=== PATIENT | male | born 1965 | race Caucasian/White ===

== ENCOUNTER 2016-09-01 15:31 | Observation (INO) ==
[2016-09-01] MEDS ORDERED: FAMOTIDINE 20 MG/2 ML VIAL IV STA ×2 (15:35→15:49)
[2016-09-01] MEDS ORDERED: diphenhydrAMINE 50 MG/1 ML VIAL ONE (15:37)
[2016-09-01] MEDS ORDERED: methylPREDNISolone SOD SUC 125 MG/2 ML VIAL ONE (15:37)
[2016-09-01] MEDS ORDERED: EPINEPHrine 1 MG/ML VIAL ONE (15:37)
[2016-09-01] MEDS ORDERED: FAMOTIDINE 20 MG/2 ML VIAL IV ONE (15:38)
[2016-09-01] MEDS ORDERED: methylPREDNISolone SOD SUC 125 MG/2 ML VIAL IV STA ×2 (15:40→15:49)
[2016-09-01] MEDS ORDERED: METOPROLOL TARTRATE 5 MG/5 ML VIAL IV ONE (15:47)
[2016-09-01] MEDS ORDERED: diphenhydrAMINE 50 MG/1 ML VIAL IV STA (15:49)
[2016-09-01] MEDS ORDERED: EPINEPHrine 1 MG/ML VIAL IM STA (15:49)
[2016-09-01] MEDS ORDERED: METOPROLOL TARTRATE 5 MG/5 ML VIAL IV STA (15:50)
[2016-09-01] MEDS ORDERED: RACEPINEPHRINE 0.5 ML NEB RESP TX STA (15:50)
[2016-09-01] MEDS ORDERED: GLYCOPYRROLATE 0.4 MG/2 ML VIAL ONE (15:51)
[2016-09-01] MEDS ORDERED: GLYCOPYRROLATE 0.4 MG/2 ML VIAL IV STA (15:53)
[2016-09-01] MEDS ORDERED: RACEPINEPHRINE 0.5 ML NEB RESP TX ONE (15:54)
[2016-09-01] MEDS ORDERED: hydrALAZINE 20 MG/1 ML VIAL ONE (15:56)
[2016-09-01] MEDS ORDERED: hydrALAZINE 20 MG/1 ML VIAL IV STA (15:58)
[2016-09-01 16:03] LABS: Basophils # 0.1 10*3/uL (0.0-0.2); Basophils % 1.2 % (0.0-0.8); Eosinophils % 0.4 % (0.00-10.9); Hemoglobin 14.4 GM/DL (14.0-18.0); Immature Granulocytes % 0.4 %; Immature Granulocytes Absolute 0.04 #; Lymphocytes # 1.9 10*3/uL (1.4-4.0); Lymphocytes % 19.7 % (21.2-54.2); Mean Corpuscular HGB Conc 35.1 GM/DL (32-36); Mean Corpuscular Hemoglobin 33 PG (27-34); Mean Corpuscular Volume 93.4 FL (87-102); Mean Platelet Volume 11.2 FL (9.6-12.0); Monocytes # 1.4 10*3/uL (0.11-0.8); Monocytes % 14.3 % (1.7-12.7); Neutrophils # 6.3 10*3/uL (1.4-7.4); Platelet Count 277 T/CUMM (130-400); Red Blood Count 4.39 MC/CUMM (3.8-5.5); Red Cell Distribution Width 12.8 % (9.3-17.3); White Blood Count 9.8 T/CUMM (4-12)
[2016-09-01] MEDS ORDERED: DEXAMETHASONE 10 MG/1 ML VIAL ONE (16:03)
[2016-09-01 16:04] LABS: Osmolality,Calculated 278.7 MOS/KG (273-304); Potassium 3.8 MMOL/L (3.5-5.1)
[2016-09-01] MEDS ORDERED: DEXAMETHASONE 4 MG/1 ML VIAL IV STA (16:05)
[2016-09-01] MEDS ORDERED: MIDAZOLAM 2 MG/2 ML VIAL ONE (16:09)
[2016-09-01] MEDS ORDERED: MIDAZOLAM 2 MG/2 ML VIAL IV STA (16:10)
--- NOTE | 2016-09-01 16:18 | XRay Report ---
Portable chest Date: 09/11/2016 Clinical history: Shortness of breath Comparison: None Technique: Portable AP sitting chest Findings: The heart is normal in size. Artifactual densities are noted with minimal atelectasis. Gaseous distention of the visualized stomach. Degenerative changes as noted. Impression: Artifact limits exam. Minimal atelectasis. Gaseous distention of the stomach. PROCEDURE INTERPRETED AT [facility] DEPARTMENT OF RADIOLOGY Final Report Signed by: Dr. Omaira Levine
--- NOTE | 2016-09-01 16:36 | Emergency Department Note ---
Iram Cosme Brittany, am scribing for, and in the presence of, Giovanny Nelson MD 15:39. Omar Cosme Phillip K, MD, personally performed the services described in this documentation, ascribed by Citlaly Walden in my presence, and it is both accurate and complete 631 . Arrival - Arrival Chief Complaint: Allergic Reaction Stated Complaint: Allergic rx Mode of Arrival: Ambulatory Limitations: No Limitations Source: Patient - History of Present Illness HPI Narrative: This is a 51 y/o male, who presents to the ED with c/o Allergic reaction which started earlier this morning. He reports for the past 3 months he has been taking Lisinopril 10 MG. He reports he is mildly SOB and also having some difficulty swallowing.. Pt has no other complaints/pain in the ED at this time. Pt has a PMHx of HTN. Patient has some altered speech secondary to swelling in the back of his throat. The symptoms began around 9 a.m. this morning. Onset (ago): hour(s) (Started this morning) Consistency: constant Severity: moderate Allergies/Adverse Reactions: Allergies Allergy/AdvReac Type Severity Reaction Status Date / Time No Known Allergies Allergy Verified 09/01/16 15:36 Home Medications: Home Medications Medication Instructions Recorded Confirmed Type Atenolol [Tenormin] 50 mg PO BID 07/09/15 09/01/16 History Omeprazole [Prilosec] 20 mg PO QAM 07/09/15 09/01/16 History [place]-3S/Dha/Epa/Fish Oil [Fish 1 each PO QAM 09/01/16 09/01/16 History Oil 1,200 mg Softgel] Simvastatin [Simvastatin] 40 mg PO BEDTIME 09/01/16 09/01/16 History cloNIDine HCl [Clonidine HCl] 0.2 mg PO BID 09/01/16 09/01/16 History Review of System - Review of System 12 point system: reviewed and no additional remarkable complaints except as stated - Review of System Cardiovascular: Present: other (Mild Dyspnea) Exam Vital Signs: Vital Signs Temperature 98.2 F 09/01/16 17:46 Pulse Rate 107 H 09/01/16 17:46 Respiratory Rate 18 09/01/16 17:46 Blood Pressure 162/100 09/01/16 17:46 O2 Sat by Pulse Oximetry 100 09/01/16 17:45 - General General appearance: alert, in no apparent distress - Head Head exam: Present: atraumatic, normocephalic, normal inspection - Eye Eye exam: Present: normal appearance, PERRL, EOMI. Absent: nystagmus - ENT ENT exam: Present: other (Swelling to the posterior pharynx and uvula) - Neck Neck exam: Present: normal inspection, full ROM, trachea midline. Absent: tenderness, meningismus, lymphadenopathy, thyromegaly - Chest Chest inspection: Present: normal inspection, symmetric chest wall rise. Absent : tenderness, rash, abscess - Respiratory Respiratory exam: Present: normal lung sounds bilaterally. Absent: rales, respiratory distress, rhonchi, stridor, wheezes - Cardiovascular Cardiovascular exam: Present: regular rate, normal rhythm, normal heart sounds. Absent: murmur, rubs, gallop, clicks - Abdominal Exam Abdominal exam: Present: soft, normal bowel sounds. Absent: distention, tenderness, guarding, rebound, rigidity - Extremities Exam Extremities exam: Present: normal inspection, full ROM, normal capillary refill. Absent: tenderness, pedal edema, joint swelling, calf tenderness - Back Exam Back exam: Present: normal inspection, full ROM. Absent: tenderness, muscle spasm, rashes - Neurological Exam Neurological exam: Present: alert, oriented X3, CN II-XII intact. Absent: motor sensory deficit - Psychiatric Psychiatric exam: Present: normal affect, normal mood. Absent: depressed, agitated, anxious, manic - Skin Skin exam: Present: warm, dry, intact, normal color. Absent: rash, cyanosis, diaphoresis, erythema, pallor, mottled Course Course Narrative: Patient given IM epinephrine, racemic epinephrine, Benadryl IV and IV steroids. Patient also has 2 units of fresh frozen plasma hanging. There may be some slight improvement in his airway at the present time. He is able to speak words that are comprehensible. We will admit him to ICU weekly monitored closely. Dr. Servin and the anesthesia department is aware of the patient's condition. Patient examined at 1708 and has clear lungs however does have continued to have swelling in the back of his throat around the posterior pharynx and the uvula. There is no swelling of the tongue noted or lips. Results - Labs CBC & BMP: 09/01/16 15:42 09/01/16 15:42 Lab Results: I have reviewed the patients labs Labs: Laboratory Tests 09/01/16 09/01/16 15:42 15:42 WBC 9.8 RBC 4.39 Hgb 14.4 Hct 41.0 L MCV 93.4 MCH 33 MCHC 35.1 RDW 12.8 Plt Count 277 MPV 11.2 Neut % (Auto) 64.0 Lymph % (Auto) 19.7 L Wright % (Auto) 14.3 H Eos % (Auto) 0.4 Baso % (Auto) 1.2 H Neut # (Auto) 6.3 Lymph # (Auto) 1.9 Wright # (Auto) 1.4 H Eos # (Auto) 0.0 Baso # (Auto) 0.1 Immature Gran % 0.4 Nucleated RBC % 0.0 Immature Gran # 0.04 Nucleated RBCs # 0.00 Sodium 138 Potassium 3.8 Chloride 97 L Carbon Dioxide 24 Anion Gap 20.8 H BUN 18 Creatinine 1.40 H GFR Calculation 66 BUN/Creatinine Ratio 12.00 Glucose 129 H Calculated Osmolality 278.7 Calcium 9.0 - Diagnostic Findings Procedure: Chest x-ray: report reviewed by me (Artifact limits exam. Miimla atelectasis. Gaseous distention of the stomach. ) Disposition Clinical Impression: Angioedema, Hypertension Case discussed with: patient, patient's family Disposition: Still a Patient Condition: Critical Additional Instructions: Anesthesia consulted. Dr. Servin consulted. Patient seen by both in the ED. We will admit to ICU so he can be closely monitored. Patient will need to be intubated at the first sign of any increased difficulty.
[2016-09-01] MEDS ORDERED: LABETALOL 20 MG/4 ML SYRINGE IV STA ×2 (16:50→16:56)
[2016-09-01] MEDS ORDERED: LABETALOL 20 MG/4 ML SYRINGE IV ONE (16:50)
--- NOTE | 2016-09-01 17:39 | Consultation ---
Assessment and Plan - Time spent with patient Time spent with patient: Greater than 30 minutes (1) Inspiratory stridor Status: Acute Assessment and plan: Bedside laryngoscopy does reveal area epiglottic fold and vocal fold edema with some tongue base edema as well fortunately the glottis and subglottis is widely patent. If his stridor worsens or the patient feels any difficulty with his breathing I would recommend moving to intubation sooner than later. Since his glottis is widely patent I think intubation with a glide scope would be able to be performed and he most likely will not need a trach. Anesthesia would like to try additional medical treatment and he is currently receiving fresh frozen plasma and they will continue to monitor him over the next 2-3 hours and I will defer to their judgment. I will remain available and please notify me if there is any change of condition or if I am needed emergently. Thank you very much for this consultation Current Visit: Yes (2) Supraglottic edema Status: Acute Current Visit: Yes (3) Angioedema Status: Acute Current Visit: Yes History of Present Illness - Data of Consult Patient: new to practice Consult date: 09/01/16 Requesting Physician: Giovanny Nelson - Consult Narrative History of present illness: Mr. Caputo is a 51 year old male with new onset shortness of breath and dysphonia presented to the emergency room and has been evaluated and treated for angioedema he has received epinephrine and steroids. ENT and anesthesia are consulted to evaluate whether the patient needs intubation or not and if so rather he needs to be done in the controlled setting such as the OR for possible tracheostomy placement. CC: - Home Medications and Allergies Home Medications: Home Medications Medication Instructions Recorded Confirmed Type Atenolol [Tenormin] 50 mg PO BID 07/09/15 09/01/16 History Omeprazole [Prilosec] 20 mg PO QAM 07/09/15 09/01/16 History [place]-3S/Dha/Epa/Fish Oil [Fish 1 each PO QAM 09/01/16 09/01/16 History Oil 1,200 mg Softgel] Simvastatin [Simvastatin] 40 mg PO BEDTIME 09/01/16 09/01/16 History cloNIDine HCl [Clonidine HCl] 0.2 mg PO BID 09/01/16 09/01/16 History Allergies/Adverse Reactions: Allergies Allergy/AdvReac Type Severity Reaction Status Date / Time No Known Allergies Allergy Verified 09/01/16 15:36 12 point system: reviewed and no additional remarkable complaints except as stated Medical,Surgical,& Family Hx - Medical History Cardio: History of: Hypertension Endocrine: History of: Dyslipidemia Gastrointestinal: History of: GERD - Surgical History Orthopedic Surgeries: Surgical HX of;: Orthopedic Surgery (LEFT ANKLE) - Social History Smoking Status: Never smoker Frequency of Alcohol Use: Unknown Type of Drug Use: None Exam - Constitutional Vitals: Period Temp Pulse Resp BP Sys/Jacobs Pulse Ox Last 24 Hr 97.6 F-98.2 F 88-132 18-18 116-184/76-124 100-100 General appearance: normal weight, mild distress - Head Head exam: Present: normal inspection, normocephalic, atraumatic - Eye Eye exam: Present: EOMI Pupils: Present: EDITH - ENT ENT exam: Present: normal exam, normal external ear exam, other (Oropharyngeal exam and bedside laryngoscopy reveals some base of tongue edema and significant and edema of the false vocal cords and aryepiglottic folds but an open glottis and subglottis. The patient is saturating 100% on room air but does have some inspiratory stridor secondary to these findings.) - Neck Neck exam: Present: normal inspection - Respiratory Respiratory exam: Present: stridor (Mild), other (No difficulty breathing or tachypnea) - Cardiovascular Cardiovascular exam: Present: regular rate and rhythm - GI/Abdominal GI/Abdominal exam: Present: soft (No gross organomegaly) - Extremities Exam Extremities exam: Present: normal inspection, normal capillary refill - Neurological Exam Neurological exam: Present: alert, oriented X3, CN II-XII intact - Psychiatric Psychiatric exam: Present: normal affect, anxious - Skin Skin exam: Present: normal color, warm Results - Labs CBC & BMP: 09/01/16 15:42 09/01/16 15:42 Lab Results: I have reviewed the past 24 hour labs Quality Measures - VTE Contraindication to Pharmacological VTE Prophylaxis: High Risk of Bleeding
[2016-09-01] MEDS ORDERED: METOPROLOL TARTRATE 5 MG/5 ML VIAL IV PRN (17:43)
--- NOTE | 2016-09-01 17:49 | Hospitalist History & Physical ---
Assessment and Plan - Time spent with patient Time spent with patient: Less than 30 minutes (1) Angioedema Status: Acute Assessment and plan: Admitting the patient to ICU. Dr. Eriberto Servin has already been consulted from ENT. He looked at vocal cords and noted edema of the false cords. He and anesthesia discussed the fact that they feel he is okay to be watched in ICU right now. If patient develops some respiratory distress he will need to be intubated. Patient has already received steroids, Benadryl, and FFP in the ED. We will manage his hypertension and tachycardia with as needed medicines. Will stop his lisinopril. Further recommendations per Dr. Love Current Visit: Yes History of Present Illness Chief complaint: Throat swelling History of present illness: Mr. Caputo is a 51-year-old white male with history of hypertension presenting to the ER with angioedema. Patient states he has been on lisinopril for the last 3 months and starting several hours ago he started having some shortness of breath, closing of the throat, and dysphonia. Patient's mother is with him and states it worsened so they brought him to the ED. Patient is received IV Benadryl, steroids, and fresh frozen plasma is hanging as we speak. Upon exam patient is awake and alert but appears mildly anxious. He does have some dysphonia. Patient has been evaluated by anesthesia and Dr. Servin from ENT. Dr. Love has been asked to admit the patient to ICU. Home Medications Medication Instructions Recorded Confirmed Type Atenolol [Tenormin] 50 mg PO BID 07/09/15 09/01/16 History Omeprazole [Prilosec] 20 mg PO QAM 07/09/15 09/01/16 History [place]-3S/Dha/Epa/Fish Oil [Fish 1 each PO QAM 09/01/16 09/01/16 History Oil 1,200 mg Softgel] Simvastatin [Simvastatin] 40 mg PO BEDTIME 09/01/16 09/01/16 History cloNIDine HCl [Clonidine HCl] 0.2 mg PO BID 09/01/16 09/01/16 History Allergies Allergy/AdvReac Type Severity Reaction Status Date / Time No Known Allergies Allergy Verified 09/01/16 15:36 Medical,Surgical,& Family Hx - Medical History Cardio: History of: Hypertension Endocrine: History of: Dyslipidemia Gastrointestinal: History of: GERD - Surgical History Orthopedic Surgeries: Surgical HX of;: Orthopedic Surgery (LEFT ANKLE) - Family History Family History: Reports;: Family Hypertension - Social History Smoking Status: Never smoker Frequency of Alcohol Use: Unknown Type of Drug Use: None - Constitutional Constitutional: Present: as per HPI - EENT Eyes: Absent: diplopia Nose, mouth and throat: Present: throat swelling - Cardiovascular Cardiovascular: Absent: chest pain at rest - Respiratory Respiratory: Present: dyspnea, wheezing - Gastrointestinal Gastrointestinal: Absent: abdominal pain - Musculoskeletal Musculoskeletal: Absent: muscle weakness - Neurological Neurological: Absent: confusion Exam - Constitutional Vitals: Period Temp Pulse Resp BP Sys/Jacobs Pulse Ox Last 24 Hr 97.6 F-98.4 F 88-132 18-18 116-184/76-124 100-100 Exam: Constitutional System: Mild distress. Mild tremulousness. Head: Normocephalic, atraumatic. Ears, Nose and Throat System: Edema posterior pharynx Eyes System: Pupils equal, round, and reactive. Extraocular muscles intact. Neck: Supple, without adenopathy, No jugular venous distention. No thyromegaly, neck mass, or prior surgery apparent. Respiratory System: Chest clear to auscultation. Cardiovascular System: Heart with tachycardia rate and regular rhythm. No murmur. GI System: Abdomen soft, nontender. Normo active bowel sounds present. Musculoskeletal System: limbs with no pedal edema. Full distal pulses. Neurological System: No discernable sensory deficit. No aphasia Psychiatric System: Conversation is rational Results - Labs CBC & BMP: 09/01/16 15:42 09/01/16 15:42 Lab Results: I have reviewed the past 24 hour labs Quality Measures - VTE Contraindication to Pharmacological VTE Prophylaxis: High Risk of Bleeding
[2016-09-01] MEDS ORDERED: cloNIDine 0.3 MG/24 HR PATCH TRANSDERM SCH (18:00)
[2016-09-02] MEDS ORDERED: MAGNESIUM SULF RIDER 2 GM in PREMIX 1 EACH IV PRN (00:12)
[2016-09-02] MEDS ORDERED: MAGNESIUM SULF RIDER 4 GM in PREMIX 1 EACH IV PRN (00:12)
[2016-09-02 01:51] LABS: Basophils % 0.3 % (0.0-0.8); Hematocrit 39.9 VOL% (42.0-52.0); Hemoglobin 14.1 GM/DL (14.0-18.0); Immature Granulocytes % 0.3 %; Immature Granulocytes Absolute 0.02 #; Lymphocytes # 0.5 10*3/uL (1.4-4.0); Lymphocytes % 7.3 % (21.2-54.2); Mean Corpuscular HGB Conc 35.3 GM/DL (32-36); Mean Corpuscular Hemoglobin 32 PG (27-34); Mean Corpuscular Volume 91.7 FL (87-102); Mean Platelet Volume 11.3 FL (9.6-12.0); Monocytes # 0.1 10*3/uL (0.11-0.8); Monocytes % 0.7 % (1.7-12.7); Neutrophils # 6.7 10*3/uL (1.4-7.4); Neutrophils % 91.4 % (38.7-73.9); Platelet Count 255 T/CUMM (130-400); Red Blood Count 4.35 MC/CUMM (3.8-5.5); Red Cell Distribution Width 12.8 % (9.3-17.3); White Blood Count 7.3 T/CUMM (4-12)
[2016-09-02 02:21] LABS: Albumin 4.3 G/DL (3.4-5.0); Bilirubin,Total 1.1 MG/DL (0.2-1.0); Calcium 8.6 MG/DL (8.5-10.1); Potassium 4.6 MMOL/L (3.5-5.1); Risk Ratio 2.23; Thyroid Stimulating Hormone 1.22 uIU/ml (0.358-3.74); Total Protein 8.2 G/DL (6.4-8.3); VLDL CHOLESTEROL 30.4 MG/DL
[2016-09-02 02:53] LABS: Band Neutrophils 2 % (0-10); Lymphocytes 11 % (20-55); Platelet Estimate Normal; Segmented Neutrophils 85 % (50-85); Total Cells Counted 100
--- NOTE | 2016-09-02 06:30 | EKG Report ---
Stationary ECG Study [facility] Test Date: 09/02/2016 12:49 AM Pat Name: JAY STARK Department: Room: 129 Gender: M Replenishment Buyer: : 1965 Requested by: Rosa Aquino Order Number: [id number] Reading MD: DIANA MATA Intervals [place] Rate: 86 P: 72 NE: 155 QRS: 67 QRSD: 78 T: 56 QT: 414 QTc: 457 Interpretive Statements SINUS RHYTHM Electronically Signed On 09-02-16 17:37:15 PUTTY REMOVER by DIANA MATA [email or web address]
[2016-09-02] MEDS ORDERED: DIAZEPAM 5 MG TABLET PO ONE (08:06)
--- NOTE | 2016-09-02 08:24 | Hospitalist Progress Note ---
Assessment and Plan (1) Angioedema Status: Resolved Assessment and plan: The patient is ready for transfer to the floor to continue monitoring. He still at risk for recurring angioedema. We will restart the patient's antihypertensive regimen and treat the steroid side effects with Valium. Current Visit: Yes Qualifiers: Encounter type: initial encounter Qualified Code(s): T78.3XXA - Angioneurotic edema, initial encounter (2) Supraglottic edema Status: Acute Current Visit: Yes (3) Hypertension Status: Chronic Current Visit: Yes Qualifiers: Hypertension type: essential hypertension Qualified Code(s): I10 - Essential (primary) hypertension Hospitalist: Subjective Interval history: The patient has no shortness of breath. The patient is not wheezing. The patient has some tremulousness. The patient conversation suggests he has some hallucinosis. The patient received high-dose steroids in the emergency room yesterday. The patient has no dysphagia today. Exam - Constitutional Vitals: Period Temp Pulse Resp BP Sys/Jacobs Pulse Ox Last 24 Hr 97.3 F-98.4 F 77-118 13-19 142-186/76-124 91-100 Exam: Constitutional System: Mild distress. Mild tremulousness. Some hypervigilance Head: Normocephalic, atraumatic. Ears, Nose and Throat System: No evidence of Otitis or Mastoiditis. No epistaxis or discharge Eyes System: Pupils equal, round, and reactive. Extraocular muscles intact. Neck: Supple, without adenopathy, No jugular venous distention. No thyromegaly , neck mass, or prior surgery apparent. Respiratory System: Chest clear to auscultation. Cardiovascular System: Heart with regular rate and rhythm. No murmur. GI System: Abdomen soft, nontender. Normo active bowel sounds present. Musculoskeletal System: limbs with no pedal edema. Full distal pulses. Neurological System: No discernable sensory deficit. No aphasia Psychiatric System: Conversation is rational Results - Labs CBC & BMP: 09/02/16 01:21 09/02/16 01:21 Lab Results: I have reviewed the past 24 hour labs Quality Measures - VTE Contraindication to Pharmacological VTE Prophylaxis: High Risk of Bleeding
[2016-09-02] MEDS: PANTOPRAZOLE 40 MG TABLET PO SCH (10:30)
[2016-09-02] MEDS: ATENOLOL 50 MG TABLET PO SCH ×2 (10:30→20:28)
[2016-09-02] MEDS: OMEGA 3 ACID ETHYL ESTERS 1 GM CAPSULE PO SCH (10:30)
[2016-09-02] MEDS: DIAZEPAM 5 MG TABLET PO PRN ×2 (13:50→20:32)
--- NOTE | 2016-09-02 18:09 | Progress Note ---
Assessment and Plan - Time spent with patient Time spent with patient: Less than 30 minutes (1) Inspiratory stridor Status: Acute Assessment and plan: Bedside laryngoscopy does reveal area epiglottic fold and vocal fold edema with some tongue base edema as well fortunately the glottis and subglottis is widely patent. If his stridor worsens or the patient feels any difficulty with his breathing I would recommend moving to intubation sooner than later. Since his glottis is widely patent I think intubation with a glide scope would be able to be performed and he most likely will not need a trach. Anesthesia would like to try additional medical treatment and he is currently receiving fresh frozen plasma and they will continue to monitor him over the next 2-3 hours and I will defer to their judgment. I will remain available and please notify me if there is any change of condition or if I am needed emergently. Thank you very much for this consultation 09/02/2016 He has had marked improvement over the last 24 hours. As mentioned in the hospitalist note and I agree he is at a risk for rebound for the outside of potentially 72 hours or so but he is doing quite well right now and has little to no clinical evidence of his angioedema currently. I have no further recommendations. I will sign off on this case thank you very much for consulting me and letting me be a part of his care. Current Visit: Yes (2) Supraglottic edema Status: Acute Current Visit: Yes (3) Angioedema Status: Resolved Current Visit: Yes Qualifiers: Encounter type: initial encounter Qualified Code(s): T78.3XXA - Angioneurotic edema, initial encounter Family Medicine PN Sub Interval history: Angioedema status post 24 hours marked improvement in the last 24 hours he has been moved from the ICU to [facility] floor he reports no worsening of condition no worsening of voice and in fact improvement in voice swallow and comfort and has no current complaints Exam (Progress Note) - Constitutional Vitals: Period Temp Pulse Resp BP Sys/Jacobs Pulse Ox Last 24 Hr 97.3 F-98.2 F 77-103 13-21 134-184/79-124 91-100 General appearance: normal weight, no acute distress - Head Head exam: Present: normal inspection, normocephalic - Eye Eye exam: Present: EOMI Pupils: Present: EDITH - ENT ENT exam: Present: normal exam, normal external ear exam, normal oropharynx - Neck Neck exam: Present: normal inspection - Respiratory Respiratory exam: Present: other (Completely resolved stridor) - GI/Abdominal GI/Abdominal exam: Present: soft (No gross organomegaly) - Neurological Exam Neurological exam: Present: alert, oriented X3, CN II-XII intact - Psychiatric Psychiatric exam: Present: normal affect, normal mood - Skin Skin exam: Present: normal color, warm Results - Labs CBC & BMP: 09/02/16 01:21 09/02/16 01:21 Lab Results: I have reviewed the past 24 hour labs Quality Measures - VTE Contraindication to Pharmacological VTE Prophylaxis: High Risk of Bleeding
[2016-09-02] MEDS ORDERED: SIMVASTATIN 40 MG TABLET PO SCH (21:00)
[2016-09-03] MEDS: DIAZEPAM 5 MG TABLET PO PRN (05:15)
[2016-09-03] MEDS: PANTOPRAZOLE 40 MG TABLET PO SCH (08:04)
[2016-09-03] MEDS: OMEGA 3 ACID ETHYL ESTERS 1 GM CAPSULE PO SCH (08:04)
[2016-09-03] MEDS: ATENOLOL 50 MG TABLET PO SCH (08:04)
--- NOTE | 2016-09-03 09:02 | Discharge Summary ---
Hospital Course - Hospital Course Hospital Course: The patient was admitted to the hospital with acute angioedema. The patient was observed in the critical care area and narrowly avoided intubation. Dr. Eriberto sarmiento was consulted and observe the patient with us. The patient had some metabolic effects of steroid given at the time of ER visit. The patient has improved and is now ready for discharge home. He has no dysphonia or evidence of angioedema at this time. At the time of discharge the chest is clear and abdomen soft. - Time spent with patient Time with patient DS: Less than 30 minutes Diagnosis - Discharge Diagnosis (1) Angioedema Status: Resolved (2) Supraglottic edema Status: Resolved (3) Hypertension Status: Chronic Discharge Plan - Discharge Data Disposition: Disch To Home/Self Care Condition at Discharge: Stable Discharge Diet: advance to your usual diet Activity: resume usual activities as tolerated - Discharge Medications Continue Omeprazole [Prilosec] 20 mg PO QAM Atenolol [Tenormin] 50 mg PO BID Simvastatin 40 mg PO BEDTIME [place]-3S/Dha/Epa/Fish Oil [Fish Oil 1,200 mg Softgel] 1 each PO QAM cloNIDine HCl [Clonidine HCl] 0.2 mg PO BID - Follow Up or Referral - Forms/Instructions Exam - Constitutional Vitals: Period Temp Pulse Resp BP Sys/Jacobs Pulse Ox Last 24 Hr 97.5 F-98.1 F 67-103 18-21 125-153/74-97 95-100 Discharge Results Procedures and tests throughout hospitalization: Pending Orders 09/02/16 02:30 MRSA Surveillence, Inf Control Stat Labs on day of discharge: Labs from last 24 hours 09/03/16 09/02/16 04:53 08:40 Magnesium 2.0 2.1 DS: Provider Date of admission: 09/01/16 17:20 Primary care physician: . No PCP Attending physician on admission: Froy Love MD Consults: 09/01/16 21:16 Consult to Pharmacy [CONS] Routine Reason for Pharmacy Consult: Adjust Meds Renal Funct Discharging clinician: Froy Love MD
[2016-09-03 10:16] VITALS: BP 104/68
== END 2016-09-03 09:55 | disposition home or self-care (01) ==
LOC: EDBD → EDUNIT# → N.ED 15:31 → N.EDINP 15:31 → N.CC 20:58 → N.2E 09-02 09:35
PROVIDERS: ADMIT Internal Medicine; ATTEND Internal Medicine